=== PATIENT | female | born 1940 | race Hispanic/Latino ===

== ENCOUNTER 2019-12-15 10:45 | Inpatient (IN) | payer OTHER, MEDICARE ==
[~2019-12-15] VITALS: Ht 152.4 cm; Wt 62.0 kg
[2019-12-15] MEDS ORDERED: DILTIAZEM HCL 125 MG/25 ML VIAL IV ONE ×2 (11:06→22:03)
[2019-12-15] MEDS ORDERED: DILTIAZEM HCL 5 MG/ML 10 ML VIAL IV ONE (11:06)
[2019-12-15 11:10] LABS: BASOPHILS % (AUTO) 0.4 % (0.0-5.0); EOSINOPHILS % (AUTO) 0.4 % (0.0-8.0); HEMATOCRIT 41.7 % (36-48); LYMPHOCYTES % (AUTO) 23.5 % (21.0-51.0); MEAN CORPUSCULAR HEMOGLOBIN 32.9 pg (27.0-33.0); MEAN CORPUSCULAR HGB CONC 33.8 g/dL (32.0-36.0); MEAN CORPUSCULAR VOLUME 97.2 fL (79-99); MONOCYTES % (AUTO) 6.7 % (3.0-13.0); NEUTROPHILS % (AUTO) 68.8 % (40.0-77.0); PLATELET COUNT (AUTO) 186 K/uL (130-400); RED BLOOD CELL COUNT(AUTO) 4.29 MIL/uL (4.00-5.50); RED CELL DISTRIBUTION WIDTH 14.3 % (11.0-15.5); WHITE BLOOD COUNT (AUTO) 4.6 K/uL (4.8-10.8)
[2019-12-15 11:22] LABS: CREATININE 0.8 mg/dL (0.5-1.5); POTASSIUM 4.2 mmol/L (3.5-5.1)
[2019-12-15 11:27] LABS: ALBUMIN 4.1 g/dL (3.5-5.0); BILIRUBIN,TOTAL 0.9 mg/dL (0.2-1.0); TOTAL PROTEIN, SERUM 7.3 g/dL (6.0-8.3)
[2019-12-15] MEDS ORDERED: ASPIRIN 325 MG TABLET ONE (11:32)
[2019-12-15 11:39] LABS: INR 1.07 (0.85-1.15); PARTIAL THROMBOPLASTIN TIME 28.4 SEC (26.3-35.5); PROTHROMBIN TIME 11.5 SEC (9.6-11.6)
[2019-12-15] MEDS ORDERED: NITROGLYCERIN 1GM/1 INCH PACKET TD ONE (12:22)
[2019-12-15] MEDS ORDERED: HYDRALAZINE HCL 20 MG/ML VIAL IV PRN (13:00)
[2019-12-15] MEDS ORDERED: FUROSEMIDE 10 MG/ML 2ML VIAL IV SCH (13:04)
[2019-12-15] MEDS ORDERED: FUROSEMIDE 10 MG/ML 2ML VIAL ONE ×2 (13:58→21:48)
[2019-12-15] MEDS ORDERED: ENOXAPARIN SODIUM 100 MG/1 ML SQ SCH (21:00)
[2019-12-15] MEDS ORDERED: SODIUM CHLORIDE 0.9% 100 ML IV ONE (22:04)
[2019-12-16] MEDS ORDERED: ENOXAPARIN SODIUM 100 MG/1 ML SQ ONE (08:31)
[2019-12-16] MEDS ORDERED: HYDRALAZINE HCL 20 MG/ML VIAL ONE (08:32)
[2019-12-16] MEDS ORDERED: FUROSEMIDE 10 MG/ML 2ML VIAL ONE ×2 (08:32→20:46)
[2019-12-16] MEDS: FUROSEMIDE 10 MG/ML 2ML VIAL IV SCH ×2 (09:00→21:00)
[2019-12-16] MEDS ORDERED: DILTIAZEM HCL 120 MG CAP.SR.24H PO SCH (10:30)
--- NOTE | 2019-12-16 17:16 | NUR ---
LEXIE NOTE/IA UNSUCCESSFUL ATTEMPTED TO PHONE PATIENT ON CELL, NUMBER INCORRECT. NEXT OF KIN CALLED, ANDREZ GOMEZ. CM TO FOLLOW UP. Addendum: 12/16/19 at 1717 by MICAH RAMIREZ RN CM Amended: Links added.
[2019-12-16] MEDS ORDERED: DILTIAZEM HCL 120 MG CAP.SR.24H PO ONE (17:55)
[2019-12-16] MEDS ORDERED: ENOXAPARIN SODIUM 80 MG/0.8 ML SQ ONE (20:45)
[2019-12-16] MEDS ORDERED: APIXABAN 2.5 MG TABLET PO ONE (20:45)
[2019-12-16 23:32] VITALS: BP 131/77
[2019-12-17 03:50] LABS: BASOPHILS % (AUTO) 0.5 % (0.0-5.0); EOSINOPHILS % (AUTO) 0.9 % (0.0-8.0); HEMATOCRIT 39.4 % (36-48); LYMPHOCYTES % (AUTO) 30.5 % (21.0-51.0); MEAN CORPUSCULAR HGB CONC 33.8 g/dL (32.0-36.0); MEAN CORPUSCULAR VOLUME 94.7 fL (79-99); MONOCYTES % (AUTO) 11.3 % (3.0-13.0); NEUTROPHILS % (AUTO) 56.6 % (40.0-77.0); PLATELET COUNT (AUTO) 181 K/uL (130-400); RED BLOOD CELL COUNT(AUTO) 4.16 MIL/uL (4.00-5.50); WHITE BLOOD COUNT (AUTO) 4.2 K/uL (4.8-10.8)
[2019-12-17 04:07] LABS: ALBUMIN 3.4 g/dL (3.5-5.0); CREATININE 0.8 mg/dL (0.5-1.5); MAGNESIUM 1.9 mg/dL (1.80-2.40); PHOSPHORUS 3.2 mg/dL (2.5-4.9); TOTAL PROTEIN, SERUM 6.8 g/dL (6.0-8.3)
[2019-12-17 04:24] VITALS: BP 140/69
[2019-12-17] MEDS ORDERED: MAGNESIUM 2GM PREMIX 50ML 50 ML IV PRN (04:45)
[2019-12-17] MEDS ORDERED: POTASSIUM CHLORIDE 10% ELIXIR 20 MEQ/15 ML UDCUP PO PRN ×2 (04:45)
[2019-12-17] MEDS ORDERED: LIDOCAINE HCL-MPF 1% 2ML VIAL IV PRN ×2 (04:45)
[2019-12-17] MEDS ORDERED: POTASSIUM CHLORIDE 20 MEQ ERTAB PO PRN (04:45)
[2019-12-17] MEDS ORDERED: POTASSIUM CHLORIDE 20MEQ/100ML 100 ML IV PRN ×2 (04:45)
[2019-12-17 07:42] VITALS: BP 161/92
[2019-12-17] MEDS: FUROSEMIDE 10 MG/ML 2ML VIAL IV SCH ×2 (08:20→08:31)
[2019-12-17] MEDS: POTASSIUM CHLORIDE 20 MEQ ERTAB PO PRN ×3 (08:20→14:38)
[2019-12-17] MEDS: APIXABAN 5 MG TABLET PO SCH ×3 (08:20→21:49)
[2019-12-17] MEDS ORDERED: DILTIAZEM HCL 120 MG CAP.SR.24H PO SCH (09:00)
--- NOTE | 2019-12-17 10:34 | NUR ---
CONSULT CALLED INTO DR. ADAMS OFFICE, LEFT MESSAGE WITH MARLO
[2019-12-17 11:00] VITALS: BP 116/68
--- NOTE | 2019-12-17 11:41 | NUR ---
SPOKE WITH CLEMENTE FROM DR. CABA OFFICE REGARDING CONSULT, STATED SHE IS A PATIENT OF DR. ROSALES MD PAGED, PENDING CALL BACK
[2019-12-17] MEDS ORDERED: LISINOPRIL 5 MG TABLET PO SCH (14:55)
[2019-12-17 16:00] VITALS: BP 113/73
[2019-12-17 17:37] LABS: MAGNESIUM 1.9 mg/dL (1.80-2.40); POTASSIUM 4.2 mmol/L (3.5-5.1)
[2019-12-17 20:09] VITALS: BP 121/71
[2019-12-17 23:27] VITALS: BP 117/69
[2019-12-18 04:00] VITALS: BP 103/58
[2019-12-18 04:09] LABS: BASOPHILS % (AUTO) 0.8 % (0.0-5.0); EOSINOPHILS % (AUTO) 0.5 % (0.0-8.0); HEMATOCRIT 39.7 % (36-48); LYMPHOCYTES % (AUTO) 37.8 % (21.0-51.0); MEAN CORPUSCULAR HEMOGLOBIN 31.9 pg (27.0-33.0); MEAN CORPUSCULAR VOLUME 96.6 fL (79-99); MONOCYTES % (AUTO) 12.9 % (3.0-13.0); NEUTROPHILS % (AUTO) 47.7 % (40.0-77.0); PLATELET COUNT (AUTO) 175 K/uL (130-400); RED BLOOD CELL COUNT(AUTO) 4.11 MIL/uL (4.00-5.50); RED CELL DISTRIBUTION WIDTH 13.9 % (11.0-15.5); WHITE BLOOD COUNT (AUTO) 3.9 K/uL (4.8-10.8)
[2019-12-18 04:28] LABS: ALBUMIN 3.4 g/dL (3.5-5.0); BILIRUBIN,TOTAL 1.1 mg/dL (0.2-1.0); CREATININE 1.1 mg/dL (0.5-1.5); POTASSIUM 4.5 mmol/L (3.5-5.1); TOTAL PROTEIN, SERUM 6.6 g/dL (6.0-8.3)
[2019-12-18 08:00] VITALS: BP 119/73
[2019-12-18] MEDS: FUROSEMIDE 20 MG TABLET PO SCH ×2 (08:00→20:09)
--- NOTE | 2019-12-18 08:20 | NUR ---
Called Sheriff MONET office to make aware of pt lexiscan consent refusal. Waiting for call back.
--- NOTE | 2019-12-18 08:50 | NUR ---
Sheriff MONET aware of pt lexiscan consent refusal. No new orders at this time.
[2019-12-18] MEDS: APIXABAN 5 MG TABLET PO SCH ×2 (09:00→20:10)
[2019-12-18] MEDS: LISINOPRIL 5 MG TABLET PO SCH (09:00)
[2019-12-18] MEDS: METOPROLOL TARTRATE 50 MG TAB PO SCH ×3 (09:00→19:29)
[2019-12-18 11:00] VITALS: BP 134/69
--- NOTE | 2019-12-18 11:35 | NUR ---
CM NOTE/IA MEET WITH PATIENT IN ROOM. PER PATIENT, IS INDEPENDENT WITH ADLS, LIVES WITH SPOUSE, NO USE OF HOME HEALTH OR PROVIDER SERVICES, NO USE OF DME, AND FEELS SAFE TO RETURN HOME DISCHARGED. CORRECTED PHONE NUMBER FOR PATIENT IS [phone]. CONFIRMED NEXT OF KIN, RLOAND VILLAVICENCIO, . Addendum: 12/18/19 at 1141 by MICAH RAMIREZ RN CM Amended: Links added.
[2019-12-18 16:02] VITALS: BP 111/73
[2019-12-18 19:51] VITALS: BP 130/67
[2019-12-18] MEDS ORDERED: ACETAMINOPHEN 325 MG TAB ONE (20:12)
--- NOTE | 2019-12-18 22:00 | NUR ---
PT IS ABLE TO AMBULATE. TOLERATED MEDICATIONS WELL. COMPLAINED OF HIP PAIN. GIVEN TYLENOL X1 DOSE. AND HEATING PADS APPLIED TO LEFT POSTERIOR HIP AREA.
[2019-12-18 23:43] VITALS: BP 121/75
[2019-12-19 03:39] VITALS: BP 121/58
[2019-12-19 05:13] LABS: BASOPHILS % (AUTO) 0.8 % (0.0-5.0); EOSINOPHILS % (AUTO) 0.8 % (0.0-8.0); HEMATOCRIT 41.2 % (36-48); LYMPHOCYTES % (AUTO) 37.9 % (21.0-51.0); MEAN CORPUSCULAR HEMOGLOBIN 32.8 pg (27.0-33.0); MEAN CORPUSCULAR HGB CONC 33.7 g/dL (32.0-36.0); MEAN CORPUSCULAR VOLUME 97.2 fL (79-99); MONOCYTES % (AUTO) 12.8 % (3.0-13.0); NEUTROPHILS % (AUTO) 47.2 % (40.0-77.0); PLATELET COUNT (AUTO) 175 K/uL (130-400); RED BLOOD CELL COUNT(AUTO) 4.24 MIL/uL (4.00-5.50); WHITE BLOOD COUNT (AUTO) 3.8 K/uL (4.8-10.8)
[2019-12-19 05:37] LABS: ALBUMIN 3.4 g/dL (3.5-5.0); BILIRUBIN,TOTAL 0.9 mg/dL (0.2-1.0); CREATININE 0.9 mg/dL (0.5-1.5); MAGNESIUM 2.5 mg/dL (1.80-2.40); PHOSPHORUS 3.3 mg/dL (2.5-4.9); POTASSIUM 4.1 mmol/L (3.5-5.1); TOTAL PROTEIN, SERUM 6.5 g/dL (6.0-8.3)
[2019-12-19 08:00] VITALS: BP 119/56
[2019-12-19] MEDS: METOPROLOL TARTRATE 50 MG TAB PO SCH ×2 (08:54→13:06)
[2019-12-19] MEDS: APIXABAN 5 MG TABLET PO SCH (08:54)
[2019-12-19] MEDS: LISINOPRIL 5 MG TABLET PO SCH (08:54)
[2019-12-19] MEDS ORDERED: FUROSEMIDE 20 MG TABLET PO SCH (09:00)
== END 2019-12-19 17:15 | disposition home or self-care (01) | DRG 308 ==
LOC: EDH 10:45 → EDHIP 13:01 → 4DH 12-16 21:47
PROVIDERS: ADMIT Hospitalist; ATTEND Hospitalist
DX: I48.20 Chronic atrial fibrillation, unspecified (principal); I50.43 Acute on chronic combined systolic (congestive) and diastolic (congestive) heart failure; I42.9 Cardiomyopathy, unspecified; E83.52 Hypercalcemia; I11.0 Hypertensive heart disease with heart failure; Z79.01 Long term (current) use of anticoagulants; Z88.0 Allergy status to penicillin; Z90.49 Acquired absence of other specified parts of digestive tract
CPT/HCPCS: 36415; 71045; 80053; 82550; 83605; 83735; 83880; 84100; 84132; 84484; 85025; 85610; 85730; 87040; 93005; 93306; 93356; 99291; G0378; J0360; J1650; J1940; J3480; J3490